=== PATIENT | female | born 1970 | race Caucasian/White ===

== ENCOUNTER 2019-03-01 10:41 | Emergency (ER) | payer OTHER ==
[2019-03-01 10:52] VITALS: BP 135/72; PULSE 79; TEMP 98; BMI 32.8
[2019-03-01] MEDS ORDERED: ACETAMINOPHEN 325 MG TABLET (FP) PO ONE (11:38)
--- NOTE | 2019-03-01 11:38 | PDOC ---
History of Present Illness - General Chief Complaint: Injury Stated Complaint: FALL Time Seen by Provider: 03/01/19 11:30 History Source: Patient Exam Limitations: No Limitations Past History - Travel Traveled outside of the country in the last 30 days: No Close contact w/someone who was outside of country & ill: No - Past Medical History Allergies/Adverse Reactions: Allergies Allergy/AdvReac Type Severity Reaction Status Date / Time No Known Allergies Allergy Verified 03/01/19 10:52 Home Medications: Ambulatory Orders No Home Medications 0 dose .ROUTE UTDICT 07/18/12 COPD: No HTN: Yes - Surgical History Cholecystectomy: Yes - Suicide/Smoking/Psychosocial Hx Smoking Status: No Smoking History: Never smoked Number of Cigarettes Smoked Daily: 0 Review of Systems - Review of Systems Able to Perform ROS?: Yes Comments:: 03/01/19 13:22 CONSTITUTIONAL: Absent: fever, chills, diaphoresis, generalized weakness, malaise, loss of appetite HEENT: Absent: rhinorrhea, nasal congestion, throat pain, throat swelling, difficulty swallowing, mouth swelling, ear pain, eye pain, visual Changes MUSCULOSKELETAL: Absent: myalgia, arthralgia, joint swelling SKIN: Present: bruise to R eye Absent: rash, itching, pallor HEMATOLOGIC/IMMUNOLOGIC: Absent: easy bleeding, easy bruising, lymphadenopathy, frequent infections ENDOCRINE: Absent: unexplained weight gain, unexplained weight loss, heat intolerance, cold intolerance NEUROLOGIC: Present: headache Absent: focal weakness or paresthesias, dizziness, unsteady gait, seizure, mental status changes, bladder or bowel incontinence PSYCHIATRIC: Absent: anxiety, depression, suicidal or homicidal ideation, hallucinations. Is the patient limited Sudanese proficient: No *Physical Exam - Vital Signs Last Vital Signs Temp Pulse Resp BP Pulse Ox 98 F 79 18 135/72 99 03/01/19 10:49 03/01/19 10:49 03/01/19 10:49 03/01/19 10:49 03/01/19 10:49 - Physical Exam Comments: 03/01/19 13:25 GENERAL: Well developed, well nourished. Awake and alert. No acute distress. HEENT: Normocephalic, atraumatic. PERRLA, EOMI. No conjunctival pallor. Sclera are non- icteric. Moist mucous membranes. Oropharynx is clear. NECK: Supple. Full ROM. No JVD. Carotid pulses 2+ and symmetric, without bruits. No thyromegaly. No lymphadenopathy. MUSCULOSKELETAL TTP of the R zygomatic arch. Normal range of motion at all joints. No bony deformities or tenderness. No CVA tenderness. EXTREMITIES: No cyanosis. No clubbing. No edema. No calf tenderness. SKIN: (+) hematoma over the R zygomatic arch. Warm and dry. Normal capillary refill. No rashes. No jaundice. NEUROLOGICAL: Alert, awake, appropriate. Cranial nerves 2-12 intact. No deficits to light touch and temperature in face, upper extremities and lower extremities. No motor deficits in the in face, upper extremities and lower extremities. Normoreflexic in the upper and lower extremities. Normal speech. Toes are down- going bilaterally. Gait is normal without ataxia. PSYCHIATRIC: Cooperative. Good eye contact. Appropriate mood and affect. Medical Decision Making - Medical Decision Making 03/01/19 14:46 The patient is a 48-year-old female no past medical history who presents to the ER today after a slip and fall. She states there was water on the floor at home when she fell and hit the right side of her face. She states that she blacked out. She notes that now she's got swelling and pain over her right cheek bone. Denies dizziness, weakness, nausea, vomiting and lightheadedness. Patient does not take blood thinners. A/P: Fall with positive LOC On exam patient is neurologically intact with no focal findings. No dysmetria, dysarthria or dysdiadochokinesia. Hematoma over the right zygomatic arch with tenderness to palpation. EOMI intact. No pain with EOMI CT facial bones and head ordered given loss of consciousness and pain over the right zygomatic arch. No acute fractures or bleeds noted on either CT. We'll discharge home with symptomatic treatment for the hematoma and have the patient follow up with her primary care doctor.Return precautions given I discussed the physical exam findings, ancillary test results and final diagnoses with the patient. I answered all of the patient's questions. The patient was satisfied with the care received and felt comfortable with the discharge plan and treatment plan. The Patient agrees to follow up with the primary care physician/specialist within 24-72 hours. Return precautions were given. *DC/Admit/Observation/Transfer Diagnosis at time of Disposition: Hematoma Fall Qualifiers: Encounter type: initial encounter Qualified Code(s): W19.XXXA - Unspecified fall, initial encounter - Discharge Dispostion Disposition: HOME Condition at time of disposition: Stable Decision to Admit order: No - Referrals Referrals: Zahra Barillas [Primary Care Provider] - - Patient Instructions Printed Discharge Instructions: DI for Closed Head Injury Additional Instructions: you were evaluated after your fall today. Your CAT scans of your head and facial bones were normal. There are no broken bones. You may take Motrin 600 mg every 6 hours as needed for pain. Apply ice to the bruise on the right side of her face. Please follow-up with your primary care doctor this week. Return to the ER for worsening headaches, dizziness, lightheadedness or if you have any changes in your symptoms. fueron evaluados despus de carver cada de hoy. Las tomografas computarizadas de la song y los huesos faciales marlee normales. No hay huesos rotos. Puede adiel Motrin 600 mg cada 6 horas segn sea necesario para el dolor. Aplica hielo en el hematoma en el lado derecho de carver zuleima. Por favor, sina un seguimiento con carver mdico de atencin primaria esta semana. Regrese a urgencias para empeorar los cas de song, mareos, aturdimiento o si tiene algn cambio en los sntomas. - Post Discharge Activity
[2019-03-01] MEDS ORDERED: ACETAMINOPHEN 325 MG TABLET (FP) ONE (11:40)
== END 2019-03-01 13:33 | disposition home or self-care (01) ==
LOC: JERFT 10:41
DX: S05.11XA Contusion of eyeball and orbital tissues, right eye, initial encounter (principal); H57.89 Other specified disorders of eye and adnexa; W18.39XA Other fall on same level, initial encounter; Y93.9 Activity, unspecified; Y92.89 Other specified places as the place of occurrence of the external cause; I10 Essential (primary) hypertension
CPT/HCPCS: 70450-TC; 70486-TC; 84703; 99281-25